=== PATIENT | male | born 1975 | race African-American/Black ===

== ENCOUNTER 2020-05-05 20:51 | Emergency (ER) | payer MEDICAID ==
[~2020-05-05] VITALS: Ht 185.4 cm; Wt 79.0 kg
[2020-05-05] MEDS ORDERED: SODIUM CHLORIDE 0.9% 1,000 ML IV ONE (21:45)
[2020-05-05 21:54] LABS: BASOPHILS % 1.3 % (0.0-2.0); EOSINOPHILS % 0.8 % (0.0-5.0); HEMATOCRIT. 40.8 % (42.0-52.0); HEMOGLOBIN. 13.8 g/dL (14.0-18.0); LYMPHOCYTES % 32.3 % (20.0-50.0); MEAN CORPUSCULAR HEMOGLOBIN 29.8 pg (28.0-32.0); MEAN CORPUSCULAR VOLUME 88.1 fL (80.0-94.0); MEAN PLATELET VOLUME 7.5 fl (7.4-10.4); MONOCYTES % 6.2 % (2.0-8.0); NEUTROPHILS % 59.4 % (40.0-76.0); PLATELET 236 x1000/uL (130-400); RED BLOOD CELL COUNT 4.63 mill/uL (4.7-6.1); RED CELL DISTRIBUTION WIDTH 14.1 % (11.6-14.6)
[2020-05-05 21:59] LABS: CHLORIDE 105 mEq/L (98-107)
[2020-05-05 22:05] LABS: ETHANOL BLOOD < 10 mg/dL
[2020-05-05] MEDS ORDERED: DIPHENHYDRAMINE 50MG/ML VIAL IM ONE (22:30)
[2020-05-05] MEDS ORDERED: HALOPERIDOL LACTATE 5MG/ML VIAL IM ONE (22:30)
[2020-05-05] MEDS ORDERED: LORAZEPAM 2MG/ML CPJ IM ONE (22:30)
[2020-05-05 22:57] LABS: CLARITY URINE CLEAR (CLEAR); COLOR URINE YELLOW (YELLOW); KETONES URINE TRACE (NEGATIVE); LEUKOCYTE ESTERASE URINE NEGATIVE (NEGATIVE); NITRITE URINE NEGATIVE (NEGATIVE); OCCULT BLOOD URINE NEGATIVE (NEGATIVE); PH URINE 5.5 (4.5-8.0); PROTEIN URINE NEGATIVE (NEGATIVE); SPECIFIC GRAVITY URINE 1.012 (1.005-1.030); UROBILINOGEN URINE 0.2 E.U./dL (0.2-1.0)
[2020-05-05 23:17] LABS: *AMPHETAMINES SCREEN URINE NEGATIVE (NEGATIVE)
[2020-05-05 23:18] LABS: *BARBITURATES SCREEN URINE NEGATIVE (NEGATIVE); *BENZODIAZEPINES SCREEN URINE NEGATIVE (NEGATIVE); *COCAINE SCREEN URINE PRESUMTIVE POSITIVE (NEGATIVE); CANNABINOID URINE SCREEN PRESUMTIVE POSITIVE (NEGATIVE); METHADONE URINE SCREEN NEGATIVE (NEGATIVE); OPIATES URINE SCREEN NEGATIVE (NEGATIVE); PHENCYCLIDINE URINE SCREEN NEGATIVE (NEGATIVE)
[2020-05-05] MEDS ORDERED: LORAZEPAM 2MG/ML CPJ IM STA (23:18)
[2020-05-06] MEDS ORDERED: LORAZEPAM 2MG/ML CPJ IV ONE (01:30)
[2020-05-07 08:52] VITALS: BP 137/86
== END 2020-05-07 10:23 | disposition home or self-care (01) ==
LOC: ER 20:51
DX: T43.592A Poisoning by other antipsychotics and neuroleptics, intentional self-harm, initial encounter (principal); R41.82 Altered mental status, unspecified; S00.03XA Contusion of scalp, initial encounter; I49.9 Cardiac arrhythmia, unspecified; F14.129 Cocaine abuse with intoxication, unspecified; F12.129 Cannabis abuse with intoxication, unspecified; Z20.828 Contact with and (suspected) exposure to other viral communicable diseases; Z75.1 Person awaiting admission to adequate facility elsewhere; Z78.1 Physical restraint status; Y92.520 Airport as the place of occurrence of the external cause
CPT/HCPCS: 36415; 70450; 80053; 80305; 80307; 80320; 80329; 81003; 82962; 85025; 87426; 93005; 96361; 96372; 96374; 99285; J1200; J1630; J2060; J7030; G0480